=== PATIENT | male | born 1955 | race Caucasian/White ===

== ENCOUNTER → 2022-09-17 | Outpatient (CLI) | payer BC ==
--- NOTE | 2022-09-17 11:24 | MR ---
EXAMINATION TYPE: MR Prostate wo/w con DATE OF EXAM: 09/17/2022 9:51 AM COMPARISON: None. CLINICAL INDICATION:Male, 66 years old with history of R97.20 ELEVATED PROSTATE SPECIFIC ANTIGEN; TECHNIQUE: Multi-planar, multi-sequence imaging of the pelvis is performed prior to and following the uncomplicated administration of bolus intravenous gadolinium. CONTRAST: 8.5 Gadavist Interpretive Criteria: PI-RADS v2.1 SERUM PSA: 4.7 12/29/2020 SURGICAL PATHOLOGY: No data available. FINDINGS: Prostatic dimensions: 5.5 x 4.5 x 3.5 cm. "Bullet" Volume:56.70 (PSA density=0.08 ng/mL/mL) CENTRAL GLAND (Central and Transition Zones/CZ+TZ): Multiple bilateral, heterogenous appearing hypertrophic stromal nodules, without suspicious lesion. M edian lobe hypertrophy with protrusion into the base of the bladder. (PI-RADS 2) PERIPHERAL ZONE (PZ): High DWI/low ADC/low T2 signal within the right posterior peripheral zone near the apex near midline sinusoids the right near the urethra measuring 8 mm. (PI-RADS 4) SEMINAL VESICLES (SV): Symmetric and unremarkable. PERIPROSTATIC TISSUES: Unremarkable. LYMPH NODES: No enlarged pelvic lymph node. REMAINING PELVIS: Bladder wall is within normal limits given distention. No abnormal free or organized intrapelvic fluid collection. No pathologic bowel dilation or mural thickening. Suspected varices within the anterior rectal wall with vessel coursing towards this region is appreci ated on sagittal imaging. Bilateral fat-containing inguinal hernias right greater than left. OSSEOUS STRUCTURES: No suspicious osseous abnormality. IMPRESSION: 1. PI-RADS 4 lesion involving the right posterior peripheral gland apex, measuring 8 mm. PI-RADS scor e: 4. 2. Moderate BPH, estimated gland volume 56.70 mL. 3. No suspicious osseous lesion. No lymphadenopathy. No evidence of prostate adenocarcinoma involving the periprostatic tissues.
== END | disposition home or self-care (01) ==
LOC: RADMRIMAIN 08:25
PROVIDERS: ATTEND Urology
DX: N40.0 Benign prostatic hyperplasia without lower urinary tract symptoms (principal); R97.20 Elevated prostate specific antigen [PSA]
CPT/HCPCS: 72197; A9585